=== PATIENT | male | born 1985 | race Caucasian/White ===

== ENCOUNTER 2019-05-24 19:59 | Emergency (ER) | payer OTHER ==
--- NOTE | 2019-05-24 21:09 | ED Physician Documentation ---
History of Present Illness - Stated complaint Stated Complaint: M - Chief complaint Chief Complaint: General - History obtained from History obtained from: Patient (He has had left testicular pain for about 2 weeks, it was fairly mild and actually went away today. It is on the posterior side of the testicle and his thought it looked funny. [place] was some [place], their machine was broken. It got worse tonight while bending over, went from a 1 to a 3.) Review of Systems Constitutional: denies: Fever, Chills Cardiac: reports: Reviewed and negative Respiratory: reports: Reviewed and negative PD PAST MEDICAL HISTORY - Past Medical History Past Medical History: No Cardiovascular: None Respiratory: None Neuro: None Endocrine/Autoimmune: None GI: None : None HEENT: None Psych: None Musculoskeletal: None Derm: None - Past Surgical History Past Surgical History: No - Present Medications Home Medications: Ambulatory Orders Medication Instructions Recorded Confirmed No Known Home Medications 05/24/19 05/24/19 - Allergies Allergies/Adverse Reactions: Allergies Allergy/AdvReac Type Severity Reaction Status Date / Time No Known Drug Allergies Allergy Verified 05/24/19 20:10 - Social History Does the pt smoke?: No Smoking Status: Never smoker Does the pt drink ETOH?: Yes Does the pt have substance abuse?: No - Immunizations Immunizations are current?: Yes - POLST Patient has POLST: No PD ED PE NORMAL - Vitals Vital signs reviewed: Yes - General General: Alert and oriented X 3, No acute distress - Male Male : Other (Left testicle is nontender with normal lie and no masses, normal cremaster reflex.) - Extremities Extremities: No edema, No calf tenderness / cord - Neuro Neuro: Alert and oriented X 3, Normal speech Results - Vitals Vitals: Vital Signs - 24 hr 05/24/19 05/24/19 20:07 22:40 Temperature 36.8 C 36.8 C Heart Rate 73 69 Respiratory 18 14 Rate Blood Pressure 141/86 H 119/59 L O2 Saturation 100 98 Oxygen O2 Source Room air PD MEDICAL DECISION MAKING - ED course ED course: 33-year-old gentleman with subacute left testicular pain, relatively unremarkable exam. Not consistent with torsion clinically. Ultrasound shows left varicocele and he was so counseled. Departure - Departure Disposition: Home, Self Care Clinical Impression: Testicular pain, left, Left varicocele Condition: Good Record reviewed to determine appropriate education?: Yes Instructions: ED Varicocele Comments: [place] continues [place], return if worse. Discharge Date/Time: 05/24/19 22:41
--- NOTE | 2019-05-24 22:30 | Ultrasound Report ---
Reason: testcullar pain Procedure Date: 05/24/2019 Accession Number: [id number] / [id number] Procedure: US - Testicle w/Doppler CPT Code: Final Report FULL RESULT: EXAM: SCROTAL ULTRASOUND EXAM DATE: 05/24/2019 09:59 PM. CLINICAL HISTORY: Testicular pain COMPARISON: None. TECHNIQUE: Real-time scanning was performed with static images obtained. Color-flow images were utilized. FINDINGS: Right: Testis: 4.2 x 2.3 x 2.8 cm. Normal size and echotexture. No mass, calcification, or abnormal blood flow. Epididymis: 1.1 x 0.9 x 1.6 cm. Normal size and echotexture. Tiny epididymal head cyst measuring 2 x 2 mm. No mass or abnormal blood flow. Hydrocele: Small. Varicocele: None. Left: Testis: 4.3 x 2.4 x 3.0 cm. Normal size and echotexture. Small nonshadowing calcification measuring 1 mm. No mass or abnormal blood flow. Epididymis: 1.3 x 2.0 x 1.2 cm. Normal size and echotexture. Tiny epididymal head cyst measuring 2 x 2 mm. No mass or abnormal blood flow. Hydrocele: None. Varicocele: Yes, measuring up to 2.5 mm. IMPRESSION: 1. Left varicoceles. 2. Small right hydrocele. 3. No evidence of testicular torsion. [facility]
[2019-05-24 22:41] VITALS: BP 119/59
== END 2019-05-24 22:41 | disposition home or self-care (01) ==
LOC: ED 19:59
DX: N50.812 Left testicular pain (principal); I86.1 Scrotal varices
CPT/HCPCS: 76870; 93975; 99283; 99284